=== PATIENT | male | born 1980 | race Caucasian/White ===

== ENCOUNTER → 2018-01-01 16:04 | Outpatient (CLI) | payer OTHER, SELFPAY ==
--- NOTE | 2018-01-01 16:05 | DI.RAD.S_ITS ---
PROCEDURE: XR WRIST LT MIN 3V INDICATIONS: left wrist pain TECHNIQUE: 4 views of the wrist were acquired. COMPARISON: None. FINDINGS: Bones: No fractures or dislocations. No suspicious bony lesions. Scaphoid view: No trauma to the scaphoid is found. Soft tissues: No suspicious soft tissue calcifications. IMPRESSION: A normal examination. Source of pain is not seen. Dictated by: Otilio You M.D. on 01/01/2018 at 16:47 Approved by: Otilio You M.D. on 01/01/2018 at 16:47
== END ==
PROVIDERS: PCP Family Medicine; Visit Provider Internal Medicine
DX: M25.532 Pain in left wrist (principal)
CPT/HCPCS: 73110

== ENCOUNTER → 2018-09-06 07:18 | Outpatient (CLI) | payer OTHER, SELFPAY ==
[2018-09-06 07:56] LABS: Hematocrit 50.9 % (41-53); Hemoglobin 17.5 g/dL (13.5-17.5); Mean Corpuscular HGB Conc 34.3 % (30-36); Mean Corpuscular Hemoglobin 29.8 PG (26-34); Mean Corpuscular Volume 87.1 fL (80-100); Platelet Count 276 X10^3/uL (150-400); Red Blood Cell Count 5.85 X10^6/uL (4.5-5.9); Red Cell Distribution Width 13.5 % (11.6-14.8); White Blood Cell Count 8.3 X10^3/uL (4.5-11.0)
[2018-09-06 08:19] LABS: Alanine Aminotransferase 53 IU/L (21-72); Albumin 4.5 g/dL (3.5-5.0); Albumin Globulin Ratio 1.4 (1.0-2.8); Alkaline Phosphatase 74 U/L (38-126); Aspartate Aminotransferase 38 IU/L (17-59); BUN Creatinine Ratio 22.5 (6-22); Bilirubin Total 0.9 mg/dL (0.2-1.3); Blood Urea Nitrogen 18 mg/dL (9-20); Calcium 9.4 mg/dL (8.4-10.2); Carbon Dioxide 29 mmol/L (22-32); Chloride 103 mmol/L (98-107); Cholesterol 216 mg/dL (140-199); Estimated Glomerular Filt Rate > 60.0 mL/min (>60); Globulin 3.3 g/dL (1.7-4.1); Glucose 98 mg/dL (70-100); HDL Cholesterol 49 mg/dL (40-60); HEMOLYSIS 25 (0-50); LDL Cholesterol Calculated 150 mg/dL (<100); Potassium 4.5 mmol/L (3.4-5.1); Sodium 140 mmol/L (137-145); Total Protein 7.8 g/dL (6.3-8.2); Triglycerides 86 mg/dL (35-150)
[2018-09-06 08:52] LABS: TSH w/ Reflex to FT4 2.23 uIU/mL (0.47-4.68)
== END ==
PROVIDERS: PCP Nurse Practitioner; Visit Provider Nurse Practitioner
DX: I10 Essential (primary) hypertension (principal); Z00.00 Encounter for general adult medical examination without abnormal findings
CPT/HCPCS: 36415; 80053; 80061; 84443; 85027

== ENCOUNTER → 2019-12-21 08:55 | Outpatient (CLI) | payer OTHER, SELFPAY ==
[2019-12-23 02:32] LABS: COVID19 Sendout Not Detected (Not Detect)
== END ==
PROVIDERS: PCP Nurse Practitioner; Visit Provider Nurse Practitioner
DX: Z11.59 Encounter for screening for other viral diseases (principal)
CPT/HCPCS: 87635

== ENCOUNTER 2019-12-24 06:53 | Day surgery (SDC) | payer OTHER, SELFPAY ==
[2019-12-20 08:38] VITALS: BMI 26.6
[2019-12-24] VITALS (11 sets, daily range): BP systolic 99–135; BP diastolic 53–86; PULSE 63–79; RESP 12–20; TEMP 36.1–36.5; O2SAT 92–98; BMI 26.6
--- NOTE | 2019-12-24 07:27 | PM.HP.1 ---
History of Present Illness History of Present Illness Date Patient Seen: 12/24/19 Time Patient Seen: 07:27 Chief complaint: LIH REPAIR W/MESH Narrative: 39 healthy male here for elective left inguinal hernia repair.No interval changes in health. Patient History Medical History Anxiety (Chronic) Chicken pox (Resolved) Chronic back pain (Chronic) Labral tear of shoulder (Chronic) Measles (Resolved) Opioid abuse (Resolved) Surgical History Anesthesia (Resolved) History of ear surgery (Resolved) History of repair of ACL (Resolved) Status post tonsillectomy and adenoidectomy (Resolved) Family & Social History Family History Grandfather Heart disease Hypertension High cholesterol Brother No problems noted. Father No problems noted. Family/Other No problems noted. Family/Other No problems noted. Grandmother No problems noted. Mother No problems noted. Grandfather No problems noted. Grandmother No problems noted. Sister No problems noted. Sister No problems noted. Social History: household members spouse,children Tobacco & Substance use: Smoking Status Former smoker alcohol intake current Substance Use Type does not use Meds Home Medications and Allergies Home Medications Medication Instructions Recorded Confirmed Type buspirone 5 mg tablet 5 mg PO DAILY #30 tab 12/03/18 12/20/19 Rx Allergies Allergy/AdvReac Type Severity Reaction Status Date / Time No Known Drug Allergies Allergy Verified 10/23/19 15:25 Review of Systems Review of Systems ROS: Yes All systems reviewed with the patient and are negative except as otherwise documented Exam Vital Signs (past 8 hours): - 12/24/19 07:24 Temperature 97.7 F Pulse Rate 79 Respiratory Rate 20 Blood Pressure 135/86 Pulse Oximetry 98 Oxygen Delivery Method Room Air Narrative Exam Narrative: General-no acute distress, well nourished adult male HEENT-moist mucous membranes, no scleral icterus Neck-supple, no lymphadenopathy Chest- non labored respirations, clear to auscultation bilaterally Cardiac-regular rate no peripheral edema Abdomen-reducible left inguinal hernia Extremities-warm, well perfused Neurological-alert and oriented, no focal deficits Assessment & Plan Assessment & Plan narrative: 39-year-old male with a symptomatic left inguinal hernia. I described the nature of the hernia and recommended that he undergo an open left inguinal hernia repair with mesh. I described the technical nature of the procedure to him. We discussed the operative risks including bleeding infection recurrence chronic pain damage to surrounding structures. His questions have been answered he is in agreement with this plan will schedule at his convenience.
--- NOTE | 2019-12-24 07:32 | SUR.OPER ---
Supine on padded OR bed, head on pillow, arms secured on padded arm boards at <90 degrees abduction, legs uncrossed, safety belt at thigh, tape over blanket over lower legs.
[2019-12-24] MEDS: LACTATED RINGERS 1,000 ML 100 ML IV ×2 (07:34→09:09)
[2019-12-24] MEDS: CEFAZOLIN 2 GM/100 ML FROZ.PIGGY IV (07:45)
[2019-12-24] MEDS: BUPIVACAINE 0.25% (PF) VIAL 30 ML INJ (07:58)
--- NOTE | 2019-12-24 09:13 | PM.OP.1 ---
Operative Date/Time/Diagnoses Date of procedure: 12/24/19 Time of procedure: 09:13 Pre-op diagnosis: Left inguinal hernia Post-op diagnosis: same Procedure & Clinicians Procedure: Open left inguinal hernia repair with mesh Same procedure as scheduled: Yes Indications: Reducible symptomatic left inguinal hernia Surgeon: Marin Haley Anesthesia Type: General Operative Notes Findings: Moderate-size direct floor defect, cord lipoma Specimen(s): none sent Estimated Blood Loss (mL): 30 Procedure in detail: The patient was placed supine on the table and bilateral lower extremity compression devices were applied. Anesthesia was induced they were intubated with an LMA and received 2g of Ancef. A time-out was performed. They were prepped and draped in sterile fashion. The left external inguinal ring and the anterior superior iliac crest were identified and marked. 1 finger breath above the inguinal ligament the skin was infiltrated with 0.25% bupivacaine. The skin incision was made here and the subcutaneous tissues were divided with electrocautery exposing the external oblique aponeurosis which was then opened along the direction of its fibers. Using blunt dissection the internal oblique aporneurosis was from the external oblique upper leaflet to identify the iliohypogastric nerve. Using a kittner the cord was carefully dissected away from the inguinal canal adjacent to the pubic tubercle. The cord including the vas deferens, testicular bloody supply, ilioguinal and genital nerve were encircled with a [place] drain. A moderate size direct floor defect was identified and it was reduced into the abdomen and the internal oblique aporneuorsis was approximated to the inguinal ligament with Ethibond suture to reapproximate the floor. The cremasteric fibers surrounding the cord were divided using electrocautery adjacent to the internal ring.. The vas deferens and the testicular vessels were preserved and protected. There was a small indirect hernia on the anterior medial aspect of the cord which was skeletonized away from the vas deferens and testicular blood supply. There was a small cord lipoma that was skeletonized and then excised with the cautery there was no evidence of an indirect hernia. I selected a 7x 15 cm lightweight Pro Loop hernia mesh. The inferior medial aspect of the mesh was anchored to insertion of the rectus muscle to the pubic tubercle such that there was approximately 2 cm of tubercle overlap with Ethibond and then was run continuously along the inferior edge of the mesh to the shelving edge of the inguinal ligament. Interrupted 3 0 Vicryl suture was used to anchor the superior aspect of the mesh to the conjoined tendon in several places. The tails were then reapproximated loosely around the spermatic cord. The tails of the mesh were then tucked under the external oblique aponeurosis. The repair was checked for hemostasis. The wound was irrigated with sterile saline. The external oblique aponeurosis was reapproximated in a running fashion using 3 0 Vicryl. The subcutaneous tissues were reapproximated with 3 0 Vicryl skin closed with 4 0 Monocryl followed by the application of Dermabond. At the end of the operation I ensured that both testicles were within the scrotum. The sponge instrument count at the end operation was correct. The patient emerged from anesthesia was extubated and transferred to the postoperative care unit in stable condition. A total of 30 ml of of 0.25% bupivicaine was used to infiltrate the skin. Complications: none Post-operative Condition: stable Disposition: same day surgery
--- NOTE | 2019-12-24 09:40 | SUR.PHASEI ---
Patient awake and denies any pain or nausea at this time. Incision remains clean, dry and intact. VSS.
== END 2019-12-24 10:24 | disposition home or self-care (01) ==
PROVIDERS: PCP Nurse Practitioner; Referring Provider Nurse Practitioner; Visit Provider Surgery
PROC: (CPT 49505; principal; 2019-12-24 07:45)
DX: K40.90 Unilateral inguinal hernia, without obstruction or gangrene, not specified as recurrent (principal)
CPT/HCPCS: 49505; C1781; J0690; J1100; J1885; J2250; J2405; J2704; J3010

== ENCOUNTER → 2022-04-02 08:32 | Outpatient (CLI) | payer OTHER, SELFPAY ==
[2022-04-02 11:17] LABS: Hematocrit 50.1 % (41-53); Mean Corpuscular HGB Conc 33.9 % (30-36); Mean Corpuscular Hemoglobin 29.4 PG (26-34); Mean Corpuscular Volume 86.8 fL (80-100); Platelet Count 284 X10^3/uL (150-400); Red Blood Cell Count 5.78 X10^6/uL (4.5-5.9); Red Cell Distribution Width 13.2 % (11.6-14.8); White Blood Cell Count 8.4 X10^3/uL (4.5-11.0)
[2022-04-02 11:19] LABS: Alanine Aminotransferase 59 IU/L (<50); Albumin 4.5 g/dL (3.5-5.0); Albumin Globulin Ratio 1.4 (1.0-2.8); Alkaline Phosphatase 89 U/L (38-126); Aspartate Aminotransferase 35 IU/L (17-59); BUN Creatinine Ratio 20.2 (6-22); Bilirubin Total 0.7 mg/dL (0.2-1.3); Blood Urea Nitrogen 17 mg/dL (9-20); Calcium 9.6 mg/dL (8.4-10.2); Carbon Dioxide 31 mmol/L (22-32); Chloride 101 mmol/L (98-107); Cholesterol 227 mg/dL (140-199); Estimated Glomerular Filt Rate > 60 mL/min (>60); Globulin 3.3 g/dL (1.7-4.1); Glucose 89 mg/dL (70-100); HDL Cholesterol 56 mg/dL (40-60); HEMOLYSIS < 15 (0-50); LDL Cholesterol Calculated 150 mg/dL (<100); Sodium 140 mmol/L (137-145); Total Protein 7.8 g/dL (6.3-8.2); Triglycerides 105 mg/dL (35-150)
[2022-04-02 11:46] LABS: TSH w/ Reflex to FT4 2.16 uIU/mL (0.47-4.68)
== END ==
PROVIDERS: PCP Nurse Practitioner; Referring Provider Nurse Practitioner Family; Visit Provider Nurse Practitioner Family
DX: F41.1 Generalized anxiety disorder (principal); Z13.6 Encounter for screening for cardiovascular disorders
CPT/HCPCS: 36415; 80053; 80061; 84443; 85027

== ENCOUNTER → 2023-01-30 08:50 | Outpatient (CLI) | payer OTHER, SELFPAY ==
--- NOTE | 2023-01-30 08:51 | DI.US.S_ITS ---
PROCEDURE: US SCROTUM INDICATIONS: Left Testicular pain; hx of of LIH repair in 2019 TECHNIQUE: Real-time scanning was performed of the scrotum and testicles, with image documentation. Color and pulse Doppler interrogation was performed of both testicles. COMPARISON: None. FINDINGS: Right: Testicle is normal in size at 4.1 x 3.8 x 2.4 cm, and homogenous in echotexture. A few foci of macrocalcification. Epididymis is normal in overall size and morphology. No hydrocele or varicoceles. Overlying scrotal skin is normal in thickness. Left: Testicle is normal in size at 3.9 x 3.8 x 2.4 cm, and homogeneous in echotexture. A few foci of microcalcification. Epididymis is normal in overall size and morphology. No hydrocele or varicoceles. Overlying scrotal skin is normal in thickness. Doppler: Color and pulse Doppler demonstrate normal and symmetric arterial flow in both testicles. IMPRESSION: 1. Microlithiasis, which has increased risk for testicular cancer. Recommend teaching for self examination. 2. No testicular mass. No findings to suggest testicular torsion. 3. Normal epididymis bilaterally. 4. Small hydroceles bilaterally, right greater than left. Dictated by: Heather Sales M.D. on 01/30/2023 at 12:36 Approved by: Heather Sales M.D. on 01/30/2023 at 12:42
== END ==
PROVIDERS: PCP Family Medicine; Referring Provider Physician Assistant; Visit Provider Physician Assistant
DX: N50.812 Left testicular pain (principal); N43.3 Hydrocele, unspecified
CPT/HCPCS: 76870; 93975

== ENCOUNTER → 2023-09-19 16:23 | Outpatient (CLI) | payer OTHER, SELFPAY ==
--- NOTE | 2023-09-19 16:24 | DI.RAD.S_ITS ---
PROCEDURE: XR KNEE RT 3V INDICATIONS: RIGHT KNEE PAIN TECHNIQUE: 3 views of the knee were acquired. COMPARISON: [facility], CR, XR KNEE ARTHRITIC SERIES , 06/21/2021, 15:30. FINDINGS: Bones: No fractures or dislocations. No suspicious bony lesions. Soft tissues: Small joint effusion. No suspicious soft tissue calcifications. IMPRESSION: No acute osseous abnormality. Small knee joint effusion. If pain persists with conservative management, consider repeat x-ray in 10-14 days or cross-sectional imaging. Dictated by: Mike Pfeiffer M.D. on 09/19/2023 at 17:15 Approved by: Mike Pfeiffer M.D. on 09/19/2023 at 17:16
== END ==
PROVIDERS: PCP Family Medicine; Referring Provider Physical Medicine & Rehabilitation; Visit Provider Physical Medicine & Rehabilitation
DX: S83.211A Bucket-handle tear of medial meniscus, current injury, right knee, initial encounter (principal); M17.11 Unilateral primary osteoarthritis, right knee; M25.461 Effusion, right knee; X58.XXXA Exposure to other specified factors, initial encounter
CPT/HCPCS: 73562

== ENCOUNTER 2024-03-04 18:37 | Emergency (ER) | payer OTHER, SELFPAY ==
--- NOTE | 2024-03-04 18:42 | EKG_ITS ---
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
[2024-03-04 18:47] VITALS: BP 149/94; PULSE 66; RESP 18; TEMP 36.6; O2SAT 99; BMI 26.4
[2024-03-04 18:50] VITALS: PULSE 65; RESP 16; O2SAT 99
[2024-03-04 18:55] LABS: Add Manual Diff / Slide Review NO; Basophils Absolute Auto 100 /uL (0-100); Basophils Percent Auto 0.5 % (0-2); Eosinophils Absolute Auto 200 /uL (0-450); Hematocrit 51.6 % (41-53); Hemoglobin 17.9 g/dL (13.5-17.5); Lymphocytes Absolute Auto 3500 /uL (1100-4500); Lymphocytes Percent Auto 30.8 % (25-40); Mean Corpuscular HGB Conc 34.6 % (30-36); Mean Corpuscular Hemoglobin 30.1 PG (26-34); Monocytes Absolute Auto 800 /uL (0-900); Monocytes Percent Auto 7.3 % (3-14); Neutrophils Absolute Auto 6700 /uL (1500-7000); Neutrophils Percent Auto 59.4 % (50-75); Platelet Count 281 X10^3/uL (150-400); Red Blood Cell Count 5.94 X10^6/uL (4.5-5.9); Red Cell Distribution Width 13.8 % (11.6-14.8); White Blood Cell Count 11.3 X10^3/uL (4.5-11.0)
[2024-03-04 19:00] VITALS: BP 136/83; PULSE 61; RESP 18; O2SAT 98
[2024-03-04 19:07] LABS: Alanine Aminotransferase 44 IU/L (<50); Albumin 4.6 g/dL (3.5-5.0); Albumin Globulin Ratio 1.5 (1.0-2.8); Alkaline Phosphatase 65 U/L (38-126); Aspartate Aminotransferase 38 IU/L (17-59); BUN Creatinine Ratio 21.6 (6-22); Bilirubin Total 0.5 mg/dL (0.2-1.3); Blood Urea Nitrogen 19 mg/dL (9-20); Calcium 9.1 mg/dL (8.4-10.2); Carbon Dioxide 28 mmol/L (22-32); Chloride 102 mmol/L (98-107); Estimated Glomerular Filt Rate > 60 mL/min (>60); Globulin 3.1 g/dL (1.7-4.1); Glucose 92 mg/dL (70-100); HEMOLYSIS 17 (0-50); Lipase 224 U/L (23-300); Potassium 3.9 mmol/L (3.4-5.1); Sodium 137 mmol/L (137-145); Total Protein 7.7 g/dL (6.3-8.2)
[2024-03-04 19:08] LABS: Creatine Kinase 193 U/L (55-170)
[2024-03-04 19:20] LABS: Troponin I < 0.012 ng/mL (0.01-0.034)
[2024-03-04 19:30] VITALS: BP 129/74; PULSE 60; RESP 16; O2SAT 98
[2024-03-04 20:00] VITALS: BP 120/73; PULSE 60; RESP 15; O2SAT 98
--- NOTE | 2024-03-04 20:19 | ED_ITS ---
HPI - General Adult General Chief complaint: Eye Problems Stated complaint: HBP, vision changes in left eye Time Seen by Provider: 03/04/24 18:41 Source: patient Mode of arrival: Ambulatory History of Present Illness HPI narrative: Patient was a 43-year-old male. He was recently diagnosed with high blood pressure. Was initially started on losartan but he states it was not controlling his blood pressures then he was switched to clonidine. He takes clonidine 3 times a day. He has been on this medication for the past 2 weeks. He states that today he got home from work and noticed that he was having some blurry vision in his left eye. No headaches. No chest pain. No shortness of breath. No balance issues. He has been taking his medications as directed. He stated that they took his blood pressure and it was elevated which prompted him to come to the emergency department. At the time of my evaluation he states his blood pressure is better and he was now asymptomatic. Related Data Allergies Allergy/AdvReac Type Severity Reaction Status Date / Time No Known Drug Allergies Allergy Verified 01/17/23 13:27 Review of Systems Review of Systems ROS Unobtainable: All systems reviewed & are unremarkable except as noted in HPI and below Patient History Medical History Left inguinal hernia GERD (gastroesophageal reflux disease) Right knee DJD Tear of medial meniscus of right knee Anxiety Chicken pox Measles Opioid abuse Chronic back pain Labral tear of shoulder Surgical History History of repair of anterior cruciate ligament of left knee Anesthesia History of ear surgery History of repair of ACL Status post tonsillectomy and adenoidectomy Family History Grandfather Heart disease Hypertension High cholesterol Brother No problems noted. Father No problems noted. Family/Other No problems noted. Family/Other No problems noted. Grandmother No problems noted. Mother No problems noted. Grandfather No problems noted. Grandmother No problems noted. Sister No problems noted. Sister No problems noted. Social History marital status: household members: spouse and children occupational status: employed Smoking Status: Former smoker alcohol intake: current substance use type: does not use Smoking Status: Former smoker Exam Initial Vital Signs Initial Vital Signs: Vital Signs Temperature 97.9 F 03/04/24 18:47 Pulse Rate 66 03/04/24 18:47 Respiratory Rate 18 03/04/24 18:47 Blood Pressure 149/94 H 03/04/24 18:47 Pulse Oximetry 99 03/04/24 18:47 Oxygen Delivery Method Room Air 03/04/24 18:47 Const General: cooperative, comfortable and No ill appearing HENMT Head: normal to inspection and normocephalic Resp Effort & Inspection: normal respiratory effort Auscultation: clear to auscultation bilaterally Cardio Rate: regular rate Rhythm: regular rhythm GI Inspection: normal to inspection Skin General: no rashes or lesions noted Neuro General: patient alert, patient awake, patient oriented x3 and moves all extremities Speech: speech normal Course Orders Ordered: ED Orders 03/04/24 18:42 EKG-12 Lead Stat 03/04/24 18:44 Complete Blood Count AUTO DIFF Stat Comprehensive Metabolic Panel Stat Lipase Stat Troponin & CK Cardiac Panel Stat Vital Signs Vital signs: Vital Signs - 8 hr 03/04/24 18:47 03/04/24 18:50 03/04/24 19:00 Temperature 97.9 F Pulse Rate 66 65 Respiratory Rate 18 16 Blood Pressure 149/94 H 136/83 Pulse Oximetry 99 99 Oxygen Delivery Method Room Air 03/04/24 19:00 03/04/24 19:30 03/04/24 19:30 Temperature Pulse Rate 61 60 Respiratory Rate 18 16 Blood Pressure 129/74 Pulse Oximetry 98 98 Oxygen Delivery Method Room Air 03/04/24 20:00 03/04/24 20:00 Temperature Pulse Rate 60 Respiratory Rate 15 Blood Pressure 120/73 Pulse Oximetry 98 Oxygen Delivery Method Medical Decision Making Lab Data Lab results reviewed: Yes I reviewed the patient's lab results. 03/04/24 18:44 03/04/24 18:44 Labs: Lab Results 03/04/24 Range/Units 18:44 WBC 11.3 H (4.5-11.0) X10^3/uL RBC 5.94 H (4.5-5.9) X10^6/uL Hgb 17.9 H (13.5-17.5) g/dL Hct 51.6 (41-53) % MCV 87.0 (80-100) fL MCH 30.1 (26-34) PG MCHC 34.6 (30-36) % RDW 13.8 (11.6-14.8) % Plt Count 281 (150-400) X10^3/uL Neut % (Auto) 59.4 (50-75) % Lymph % (Auto) 30.8 (25-40) % [place] % (Auto) 7.3 (3-14) % Eos % (Auto) 2.0 (2-4) % Baso % (Auto) 0.5 (0-2) % Neut # (Auto) 6700 (3576-0174) /uL Lymph # (Auto) 3500 (0195-7810) /uL [place] # (Auto) 800 (0-900) /uL Eos # (Auto) 200 (0-450) /uL Baso # (Auto) 100 (0-100) /uL Sodium 137 (137-145) mmol/L Potassium 3.9 (3.4-5.1) mmol/L Chloride 102 (98-107) mmol/L Carbon Dioxide 28 (22-32) mmol/L BUN 19 (9-20) mg/dL Creatinine 0.88 (0.66-1.25) mg/dL Estimated GFR > 60 (>60) mL/min BUN/Creatinine Ratio 21.6 (6-22) Glucose 92 (70-100) mg/dL Calcium 9.1 (8.4-10.2) mg/dL Total Bilirubin 0.5 (0.2-1.3) mg/dL AST 38 (17-59) IU/L ALT 44 (<50) IU/L Alkaline Phosphatase 65 (38-126) U/L Total Creatine Kinase 193 H (55-170) U/L Troponin I < 0.012 (0.01-0.034) ng/mL Total Protein 7.7 (6.3-8.2) g/dL Albumin 4.6 (3.5-5.0) g/dL Globulin 3.1 (1.7-4.1) g/dL Albumin/Globulin Ratio 1.5 (1.0-2.8) Lipase 224 (23-300) U/L ECG Data Attestation: I personally reviewed and interpreted this ECG as follows: Interpretation: Sinus rhythm Ventricular rate is 68 Normal axis Normal QRS Normal QTC No ST T wave changes MDM Narrative Medical decision making narrative: Patient was now asymptomatic. His blood pressure is relatively normal. Low suspicion for ACS, intracranial hemorrhage, CVA, CHF. Advised that he continue to take his blood pressure medications at home and continue to take his blood pressure at home as directed and talk with his primary doctor about the results of this to see if he needs to adjust any of his medications. He was given return precautions. He expressed understanding and agreement with the plan. Discharge Plan Departure Patient Disposition: Home Clinical Impression: Alteration in vision, Hypertension Instructions: Essential Hypertension Activity Restrictions/Additional Instructions: Recommend that you continue to take all of your medications as directed. Contact your primary care doctor for a follow-up. Continue to take your blood pressure at home like we discussed. Return to the emergency department for new or worsening symptoms. Referrals: Florencio Brar DO [Primary Care Provider] - Stand Alone Forms: Patient Portal/API/Survey
== END 2024-03-04 20:30 | disposition home or self-care (01) ==
PROVIDERS: Emergency Provider Emergency Medicine; PCP Family Medicine
DX: I10 Essential (primary) hypertension (principal); H54.7 Unspecified visual loss
CPT/HCPCS: 36415; 80053; 82550; 83690; 84484; 85025; 93005; 93010; 99283; 99284

== ENCOUNTER 2024-03-20 20:00 | Emergency (ER) | payer OTHER, SELFPAY ==
[2024-03-20 20:04] VITALS: BP 144/88; PULSE 78; RESP 18; TEMP 36.8; O2SAT 98; BMI 26.4
--- NOTE | 2024-03-20 20:07 | DI.RAD.S_ITS ---
PROCEDURE: XR HAND RT MIN 3V INDICATIONS: LAC, Hand pain, punched wall TECHNIQUE: 3 views of the hand(s) acquired. COMPARISON: None. FINDINGS: Bones: No fractures or dislocations. Carpal bones are normally aligned. No suspicious bony lesions. Soft tissues: No suspicious soft tissue calcifications. IMPRESSION: No acute bony abnormality. Approved by: Ekta Lopez M.D.,Ph.D. on 03/20/2024 at 21:30
[2024-03-20] MEDS: LIDOCAINE 1% 30 ML 5 ML INJ (21:53)
--- NOTE | 2024-03-20 21:59 | ED_ITS ---
HPI - Extremity Injury (Upper) General Chief Complaint: Extremity Injury, Upper Stated Complaint: hand laceration Time Seen by Provider: 03/20/24 21:57 Source: patient, RN notes reviewed and old records reviewed Mode of arrival: Ambulatory Limitations: no limitations History of Present Illness HPI narrative: 43-year-old male former smoker who presents with complaint of laceration of the right hand. States they are working with power tools got frustrated punched a piece of wood and caused a laceration to the. Patient states does have some pain but fairly minimal. No numbness tingling. They do not appreciate any weakness they state they have had full range of motion of the hand. Denies any other injuries. States tetanus is up-to-date in the last 5 years. Denies any drug allergies. They are [id number]. Related Data Previous Rx's Medication Instructions Recorded cephalexin 500 mg capsule 500 mg PO Q6H 5 days #20 caps 03/20/24 Allergies Allergy/AdvReac Type Severity Reaction Status Date / Time No Known Drug Allergies Allergy Verified 01/17/23 13:27 Review of Systems Review of Systems ROS Unobtainable: All systems reviewed & are unremarkable except as noted in HPI and below Patient History Medical History Left inguinal hernia GERD (gastroesophageal reflux disease) Right knee DJD Tear of medial meniscus of right knee Anxiety Chicken pox Measles Opioid abuse Chronic back pain Labral tear of shoulder Surgical History History of repair of anterior cruciate ligament of left knee Anesthesia History of ear surgery History of repair of ACL Status post tonsillectomy and adenoidectomy Family History Grandfather Heart disease Hypertension High cholesterol Brother No problems noted. Father No problems noted. Family/Other No problems noted. Family/Other No problems noted. Grandmother No problems noted. Mother No problems noted. Grandfather No problems noted. Grandmother No problems noted. Sister No problems noted. Sister No problems noted. Social History marital status: household members: spouse and children occupational status: employed Smoking Status: Former smoker alcohol intake: current substance use type: does not use Smoking Status: Former smoker Exam Narrative Exam Narrative: GENERAL: Alert and oriented x three, male in mild distress HEENT: Head normocephalic, atraumatic, EOMI, pupils reactive, face symmetric, moist mucous membranes NECK: Supple, full range of motion EXTREMITIES: Normal range of motion, no clubbing or edema. Neurovascularly intact. Patient has not L-shaped laceration over the dorsum of the right hand extending over the midline of the hand and then medially over the 2nd and 3rd knuckles. Somewhat of an avulsion injury or flap tissue underneath appears intact no obvious tendon or ligament involvement. Patient has good range of motion. Full strength against resistance with all 5 fingers can make okay sign fall 5 fingers no other weakness appreciated. Cap refills less than 2 seconds in all 5 fingers with normal sensation 2+ radial pulse. No bony tenderness otherwise. NEUROLOGICAL: Cranial nerves II through XII grossly intact. Moving all extremities SKIN: Warm, dry, no petechiae, no rashes or lesions otherwise noted. Initial Vital Signs Initial Vital Signs: Vital Signs Temperature 98.2 F 03/20/24 20:04 Pulse Rate 78 03/20/24 20:04 Respiratory Rate 18 03/20/24 20:04 Blood Pressure 144/88 H 03/20/24 20:04 Pulse Oximetry 98 03/20/24 20:04 Oxygen Delivery Method Room Air 03/20/24 20:04 Procedures Laceration Repair Laceration 1: Site: hand Side (If applicable): right Size (cm): 5.2 Description: flap (L shaped.) Depth: simple, single layer Local Anesthetic: lidocaine 2% Amount of anesthesia used (mL): 6 Pre-repair: wound explored, irrigated extensively and deep structures intact Skin layer closed with: nylon Skin layer suture size: 4-0 Number of sutures: 7 Technique: simple, interrupted Course Orders Ordered: ED Orders 03/20/24 20:07 XR hand RT min 3V Stat Discontinued Medications Bacitracin (Bacitracin Oint 0.9 Gm Pckt) 1 applic TOP NOW ONE Stop: 03/20/24 23:19 Last Admin: 03/20/24 23:28 Dose: 1 applic Documented By: AB Diphtheria/Tetanus/Acell Pertussis (Tet,Diph,Pertuss(Acell),Vac/Pf 0.5 Ml Syringe) 0.5 ml IM .ONCE ONE Stop: 03/20/24 21:14 Last Admin: 03/20/24 21:41 Dose: Not Given Documented By: MANI Lidocaine HCl (Lidocaine 1% 30 Ml) 5 ml INJ INTRA-OP ONE Stop: 03/20/24 21:14 Last Admin: 03/20/24 21:53 Dose: 5 ml Documented By: GAY Vital Signs Vital signs: Vital Signs - 8 hr 03/20/24 20:04 03/20/24 23:08 Temperature 98.2 F 98 F Pulse Rate 78 72 Respiratory Rate 18 18 Blood Pressure 144/88 H 138/86 Pulse Oximetry 98 98 Oxygen Delivery Method Room Air Room Air MDM - Extremity Injury (Upper) Imaging Data Extremity x-ray #1: Radiologist's Impression: Brooks Vuong??43??M??1980 ? Allergy/Adv: No Known Drug Allergies (More??) Close Hand X-Ray (Signed) Ekta Lopez - 03/20/24 Knee X-Ray (Signed) Mike Pfeiffer - 09/19/23 Scrotum Ultrasound (Signed) Heather Sales - 01/30/23 DI Result CC 06/21/21 Wrist X-Ray (Signed) Otilio You - 01/01/18 [place] [address] XRay Report Signed Patient: Brooks Vuong MR#: [id number] : 1980 Acct:[id number] Age/Sex: 43 / M Date of Service: 03/20/24 Loc: ED Accession Number: [id number] Procedure: XR hand RT min 3V Ordering Provider: Reanna Delacruz D.O. PROCEDURE: XR HAND RT MIN 3V INDICATIONS: LAC, Hand pain, punched wall TECHNIQUE: 3 views of the hand(s) acquired. COMPARISON: None. FINDINGS: Bones: No fractures or dislocations. Carpal bones are normally aligned. No suspicious bony lesions. Soft tissues: No suspicious soft tissue calcifications. IMPRESSION: No acute bony abnormality. Approved by: Ekta Lopez M.D.,Ph.D. on 03/20/2024 at 21:30 [facility] Narrative Medical decision making narrative: Patient states tetanus is up-to-date. Hand x-ray is negative for acute change has good strength and range of motion no exam findings consistent with tendon or ligament involvement. Wound was sutured after being washed out. Patient tolerated well. We will place a bandage to help prevent flexion at the knuckles as this area is more likely to have the sutures pull. Because of the location the nature of the injury was started on oral antibiotic. Return precautions all questions answered. Hand x-ray is negative Discharge Plan Departure Patient Disposition: Home Clinical Impression: Laceration of hand Instructions: DI for Laceration Repair -- Simple Activity Restrictions/Additional Instructions: A prescription for oral antibiotics was sent to [facility]. Because of the location of your sutures it is important that you keep this area clean and dry but also prevent flexing at the knuckles as this can pull your sutures out. Wound Care: Keep wound(s) clean and dry. Wash daily with soap and water only. Do not use over the counter products (alcohol or peroxide)on the wounds unless instructed by a physician. You can use triple antibiotic ointment such as Neosporin to the affected area. If wound condition worsens (increased/expanding redness, developing fluid blisters, or worsening pain), either contact your doctor for an urgent re- assessment , or return to the Emergency Department. Return to the Emergency Department for any new or worsening symptoms. Return to the ED, urgent care, or visit a primary care doctor for removal or suture sutures in 7-10 days Return if fever greater than 100.4 Fahrenheit, increased swelling, increasing pain or worsening symptoms such as increased discharge or spreading redness. Prescriptions: New cephalexin 500 mg capsule 500 mg PO Q6H 5 Days Qty: 20 0RF Referrals: Florencio Brar DO [Primary Care Provider] - Vy Wills MD [Physician] - Stand Alone Forms: Patient Portal/API/Survey
[2024-03-20 23:08] VITALS: BP 138/86; PULSE 72; RESP 18; TEMP 36.6; O2SAT 98
[2024-03-20] MEDS: BACITRACIN OINT 0.9 GM PCKT 1 APPLIC TOP (23:28)
== END 2024-03-20 23:37 | disposition home or self-care (01) ==
PROVIDERS: Emergency Provider Emergency Medicine; PCP Family Medicine
DX: S61.411A Laceration without foreign body of right hand, initial encounter (principal); W22.09XA Striking against other stationary object, initial encounter
CPT/HCPCS: 12002; 73130; 99283

== ENCOUNTER → 2024-06-04 07:06 | Outpatient (CLI) | payer OTHER, SELFPAY ==
--- NOTE | 2024-06-04 07:06 | DI.ECHO.S_ITS ---
[place] [facility] : : [address] : : [place] : : [id number] : : Phone: [phone] Echocardiogram Report + + :Name: LISA WHITING Study Date: 06/04/2024 Height: 71 in : :[facility] ReadingLocation: Weight: 190 lb : : Gender: Male BSA: 2.1 m2 : :: 1980 Age: 43 yrs BP: 149/99 mmHg: :Reason For Study: ESSENTIAL HYPERTENSION : :Ordering Physician: TREMAINE ALDANA Performed By: Mara Choudhury : :Referring: TREMAINE ALDANA : + + Interpretation Summary 1. The left ventricular contractility is borderline. Estimated ejection fraction is 50 to 55% with no segmental wall motion abnormalities. No LVH. Impaired relaxation. 2. The right ventricular contractility is normal. 3. All cardiac chambers are of normal size. 4. No significant valvular abnormalities. 5. No obvious intracardiac shunts. 6. No obvious intracardiac masses nor thrombi. 7. No hemodynamically significant pericardial effusion. 8. Low right-sided filling pressures. Conclusion: Low normal left ventricular systolic function with no significant valvular nor structural abnormalities. Procedure: A two-dimensional transthoracic echocardiogram with color flow and Doppler was performed. The study quality was technically adequate. There is no prior echocardiogram noted for this patient. The patient was in sinus rhythm with heart rates between 64-82 bpm during the exam. Left Ventricle: The left ventricle is normal in size and wall thickness. The ejection fraction is estimated to be 50-55%. Right Ventricle: The right ventricle is normal in size and function. Atria: The left atrial size is normal. Right atrial size is normal. There is no Doppler evidence for an interatrial shunt. Mitral Valve: The mitral valve leaflets appear to open well. There is no mitral annular calcification. There is trace mitral regurgitation. Aortic Valve: The aortic valve is trileaflet. The aortic valve opens well. There is no aortic valve stenosis. No aortic regurgitation is present. Tricuspid Valve: The tricuspid valve leaflets are thin and pliable. There is a trace or physiologic amount of tricuspid regurgitation. Pulmonary artery pressures cannot be estimated because of the lack of a measurable TR jet velocity. Pulmonic Valve: The pulmonic valve leaflets are thin and pliable; valve motion is normal. There is no pulmonic valvular regurgitation. Great Vessels: The aortic root is normal size. The dimensions of the ascending aorta are normal. The IVC is of normal diameter and collapses greater than 50% with a sniff. This suggests a low right atrial pressure of 3 mm Hg. Pericardium/ Pleura There is no pericardial effusion. There is no pleural effusion. MMode/2D Measurements & Calculations LVIDd: 5.6 cm LVOT diam: 2.2 cm LVIDs: 4.2 cm Ao root diam: 3.5 cm FS: 25.4 % asc Aorta Diam: 3.7 cm EPSS: 0.62 cm IVSd: 0.83 cm LVPWd: 0.87 cm LV castro. diameter/BSA (cm/m^2): 2.7 LV sys. diameter/BSA (cm/m^2): 2.0 LA A2 area: 13.7 cm2 RA long axis: 4.2 cm LA A4 area: 16.2 cm2 RA area: 12.5 cm2 LA length (vol): 5.2 cm RA vol: 31.5 ml LA vol: 36.3 ml RA : 15.3 ml/m2 LA vol index: 17.6 ml/m2 IVC diam: 1.1 cm RVD1 (basal): 3.6 cm RVD2 (mid): 3.3 cm TAPSE: 1.9 cm Doppler Measurements & Calculations Ao V2 max: 117.5 cm/sec LVOT Max Barak: 84.4 cm/sec Ao V2 mean: 84.1 cm/sec LV V1 max P.9 mmHg Ao max P.5 mmHg LV V1 VTI: 16.7 cm Ao mean P.1 mmHg KAZ(I,D): 2.9 cm2 Ao V2 VTI: 21.5 cm KAZ(V,D): 2.7 cm2 sev ratio: 0.77 KAZ indexed to BSA (cm^2/m^2): 1.4 MV E max barak: 54.4 cm/sec PA V2 max: 96.9 cm/sec MV A max barak: 63.7 cm/sec PA V2 mean: 65.8 cm/sec MV E/A: 0.85 PA mean P.0 mmHg Med Peak E' Barak: 7.9 cm/sec PA pr(Accel): 34.0 mmHg E/E' med: 6.9 Lat Peak E' Barak: 9.0 cm/sec E/E' lat: 6.0 E/e' average: 6.5 MV dec time: 0.15 sec SV(LVOT): 63.3 ml Reading Physician:RAZIA
== END ==
PROVIDERS: PCP Family Medicine; Referring Provider Internal Medicine; Visit Provider Internal Medicine
DX: I10 Essential (primary) hypertension (principal)
CPT/HCPCS: 93306